=== PATIENT | male | born 1990 | race Caucasian/White ===

== ENCOUNTER 2022-02-17 13:24 | Emergency (ER) | payer BC ==
[2022-02-17] MEDS ORDERED: Sodium Chloride 0.9% 1,000 ML IV ONE (13:45)
[2022-02-17 14:08] LABS: CARBON DIOXIDE,CO2 29.4 mmol/L (21.0-32.0)
[2022-02-17] MEDS ORDERED: Iopamidol 755 MG/ML 500 ML Multipack Bottle IVPUSH STA (14:51)
[2022-02-17 15:46] VITALS: BP 138/76
[2022-02-17 16:07] VITALS: PULSE 82
== END 2022-02-17 16:07 | disposition home or self-care (01) ==
LOC: MW.ED 13:24
DX: K52.9 Noninfective gastroenteritis and colitis, unspecified (principal); Z20.822 Contact with and (suspected) exposure to COVID-19
CPT/HCPCS: 36415; 74177; 80053; 81003; 83690; 85025; 87045; 87046; 87328; 87329; 87449; 87635; 87899; 96360; 99284; J7030; Q9967; U0002

== ENCOUNTER 2023-10-18 08:51 | Day surgery (SDC) | payer BC, OTHER ==
[~2023-10-18 08:51] MED LIST: Sodium Chloride 0.9% 10 ML Syringe FLUSH PRN; Sodium Chloride 0.9% 2.5 ML Syringe FLUSH PRN; Sodium Chloride 0.9% 20 ML SDV IV PRN
[2023-10-18] MEDS: Lactated Ringers 1,000 ML IV SCH (09:43)
[2023-10-18] MEDS ORDERED: Propofol 200 MG/20 ML SDV ONE ×2 (10:31→10:54)
[2023-10-18 11:59] VITALS: BP 115/75; PULSE 77
== END 2023-10-18 12:30 | disposition home or self-care (01) ==
LOC: MW.SDS 08:51
PROVIDERS: ATTEND Surgery
DX: K29.80 Duodenitis without bleeding (principal); K21.9 Gastro-esophageal reflux disease without esophagitis; K92.1 Melena
CPT/HCPCS: 43239; 45380; J2704; J7120; 00813

== ENCOUNTER 2024-05-15 17:13 | Emergency (ER) | payer BC, OTHER ==
[2024-05-15 18:26] VITALS: BP 143/76; PULSE 95
[2024-05-15] MEDS: Amoxicillin/Clavulanate K 875-125 MG Tab PO ONE (19:02)
[2024-05-15] MEDS ORDERED: Diphtheria,Pertussis(Acell),Tetanus Vaccine 0.5 ML Syringe IM ONE (19:04)
== END 2024-05-15 19:56 | disposition home or self-care (01) ==
LOC: MW.ED 17:13
DX: S81.852A Open bite, left lower leg, initial encounter (principal); W54.0XXA Bitten by dog, initial encounter
CPT/HCPCS: 12001; 73590; 99283; A9270